=== PATIENT | male | born 1995 | race Two or more races ===

== ENCOUNTER 2023-01-26 04:08 | Inpatient (IN) | payer MEDICAID, OTHER ==
[~2023-01-26] VITALS: Ht 170.2 cm; Wt 90.3 kg
[2023-01-26] MEDS ORDERED: ZOLPIDEM TARTRATE 10 MG TABLET PO PRN (05:15)
[2023-01-26 05:45] LABS: COVID AG,FIA SOURCE NASAL SWAB
[2023-01-26] MEDS: HALOPERIDOL 5 MG TABLET PO PRN (05:45)
[2023-01-26] MEDS: LORazepam 2 MG TABLET PO PRN (05:45)
[2023-01-26 05:46] LABS: BASOPHILS % (AUTO) 0.9 % (0.0-2.0); EOSINOPHILS % (AUTO) 1.2 % (1.0-6.0); HEMATOCRIT 45.2 % (41-53); HEMOGLOBIN 15.1 g/dL (13.5-17.5); LYMPHOCYTES # (AUTO) 2.6 K/uL (1.0-4.8); MEAN CORPUSCULAR HGB CONC 33.4 G/dL (31.0-37.0); MEAN CORPUSCULAR VOLUME 90 fL (80-100); MONOCYTES # (AUTO) 0.7 K/uL (0.1-1.0); MONOCYTES % (AUTO) 7.6 % (2.0-9.0); NEUTROPHILS % (AUTO) 63.3 % (40.0-70.0); PLATELET COUNT (AUTO) 282 K/uL (150-450); RED BLOOD CELL COUNT(AUTO) 5.03 MIL/uL (4.50-5.90); RED CELL DISTRIBUTION WIDTH 13.7 % (11.5-14.5); WHITE BLOOD COUNT (AUTO) 9.5 K/uL (4.5-11.0)
[2023-01-26 05:53] LABS: SARS-COV2 (COVID) ANTIGEN,FIA Negative (Negative)
[2023-01-26 06:04] LABS: ALCOHOL, BLOOD (SERUM) < 3 mg/dL (0-10)
[2023-01-26 06:15] LABS: ANION GAP 14 mmol/L (8-16); CALCIUM, TOTAL 9.6 mg/dL (8.8-10.5); CARBON DIOXIDE 25 mmol/L (22-29); CHLORIDE 102 mmol/L (98-107); CREATININE 1.15 mg/dL (0.60-1.30); GLOMERULAR FILTR. RATE CALC > 60 mL/min (>60); GLUCOSE,RANDOM 115 mg/dL (70-110); POTASSIUM 3.8 mmol/L (3.5-5.1); SODIUM SERUM 140 mmol/L (136-145); UREA NITROGEN, BLOOD 10 mg/dL (7-18)
[2023-01-26 06:21] LABS: ALANINE AMINOTRANSFERASE 44 U/L (12-78); ALBUMIN 4.3 g/dL (3.4-5.0); ALKALINE PHOSPHATASE 101 U/L (46-116); ASPARTATE AMINOTRANSFERASE 46 U/L (15-37); BILIRUBIN,TOTAL 1.4 mg/dL (0.1-1.0); TOTAL PROTEIN, SERUM 7.7 g/dL (6.4-8.2)
[2023-01-26 06:44] LABS: APPEARANCE,URINE CLEAR (CLEAR); BILIRUBIN,URINE NEGATIVE (NEGATIVE); COLOR,URINE YELLOW (YELLOW); GLUCOSE, URINE (UA) NEGATIVE (NEGATIVE); KETONES,URINE TRACE mg/dL (NEGATIVE); LEUKOCYTE ESTERASE ,URINE NEGATIVE (NEGATIVE); NITRATE,URINE NEGATIVE (NEGATIVE); OCCULT BLOOD,URINE NEGATIVE (NEGATIVE); PROTEIN,URINE 30-70 mg/dL (NEGATIVE); SPECIFIC GRAVITIY, URINE 1.029 (1.003-1.030)
[2023-01-26 06:48] LABS: ALCOHOL, URINE DRUG SCREEN NEGATIVE (NEGATIVE); AMPHET/METH SCREEN,URINE NEGATIVE (NEGATIVE); BARBITURATE SCREEN, URINE NEGATIVE (NEGATIVE); BENZODIAZEPINES SCREEN,URINE NEGATIVE (NEGATIVE); CANNABINOID SCREEN,URINE POSITIVE (NEGATIVE); COCAINE SCREEN,URINE NEGATIVE (NEGATIVE); METHADONE SCREEN, URINE NEGATIVE (NEGATIVE); OPIATE SCREEN,URINE NEGATIVE (NEGATIVE); PHENCYCLIDINE SCREEN,URINE NEGATIVE (NEGATIVE)
[2023-01-26] MEDS ORDERED: PERTUSS(ACELL),DIPH,TET VAC/PF 0.5 ML SYRINGE IM. ONE (11:00)
[2023-01-28 00:11] VITALS: BP 145/93; PULSE 88; RESP 19; TEMP 97.4; O2SAT 95
[2023-01-28] MEDS: LORazepam 2 MG TABLET PO PRN (08:32)
[2023-01-28] MEDS: HALOPERIDOL 5 MG TABLET PO PRN (08:32)
[2023-01-28 09:50] VITALS: BP 158/99; PULSE 86; RESP 17; TEMP 97.9; O2SAT 98
[2023-01-28] MEDS ORDERED: MAGNESIUM HYDROXIDE SUSPENSION 30 ML UDCUP PO PRN (15:30)
[2023-01-28] MEDS ORDERED: MAG HYDROX/AL HYDROX/SIMETH ES 30 ML SUSPENSION UDCUP PO PRN (15:30)
[2023-01-28] MEDS ORDERED: IBUPROFEN 400 MG TABLET PO PRN (15:30)
[2023-01-28] MEDS ORDERED: GuaiFENesin/D-METHORPHAN [SUGAR-FREE] 200-20MG/10 ML SYRUP UDCUP PO PRN (15:30)
[2023-01-28] MEDS ORDERED: PETROLATUM,WHITE 28 GM JELLY TP PRN (15:30)
[2023-01-28] MEDS ORDERED: NICOTINE 14 MG/24 HOUR PATCH TD PRN (15:30)
[2023-01-28] MEDS ORDERED: ALBUTEROL SULFATE HFA 90 MCG/PUFF 8 GM INHALER IH PRN (15:30)
[2023-01-28] MEDS ORDERED: DOCUSATE SODIUM 100 MG CAPSULE PO PRN (15:30)
[2023-01-28] MEDS ORDERED: CloNIDine HCL 0.1 MG TABLET PO PRN (15:30)
[2023-01-28] MEDS ORDERED: LOPERAMIDE HCL 2 MG CAPSULE PO PRN (15:30)
[2023-01-28] MEDS ORDERED: ACETAMINOPHEN 325 MG TABLET PO PRN (15:30)
[2023-01-28] MEDS ORDERED: ONDANSETRON HCL 4 MG TABLET PO PRN (15:30)
[2023-01-28] MEDS: RisperiDONE 1 MG TABLET PO SCH (17:05)
[2023-01-28 20:50] VITALS: BP 125/78; PULSE 82; RESP 18; TEMP 97.5; O2SAT 98
[2023-01-29 06:25] LABS: HEMOGLOBIN A1C 5.4 % (3.8-5.6)
[2023-01-29 06:30] LABS: THYROID STIMULATING HORMONE 0.62 uIU/mL (0.36-3.74)
[2023-01-29] MEDS: RisperiDONE 1 MG TABLET PO SCH ×2 (08:42→18:09)
[2023-01-29 09:45] LABS: CHOL/HDL RATIO 4.2 (4.2-7.3)
[2023-01-29 10:55] VITALS: BP 122/71; PULSE 81; RESP 17; TEMP 97.2; O2SAT 97
[2023-01-29 21:05] VITALS: BP 131/74; PULSE 83; RESP 18; TEMP 97.4; O2SAT 97
[2023-01-30 08:05] VITALS: BP 141/87; PULSE 68; RESP 18; TEMP 97.1; O2SAT 100
[2023-01-30] MEDS: RisperiDONE 1 MG TABLET PO SCH ×2 (08:28→16:14)
[2023-01-30] MEDS ORDERED: RISP1TAB98 PO (12:04)
== END 2023-01-30 17:30 | disposition home or self-care (01) | DRG 750 ==
LOC: EMS 04:11 → 3EI 01-27 21:42
PROVIDERS: ADMIT Psychiatry & Neurology Child & Adolescent Psychiatry; ATTEND Psychiatry & Neurology Child & Adolescent Psychiatry
DX: F25.1 Schizoaffective disorder, depressive type (principal); S09.90XA Unspecified injury of head, initial encounter; R45.851 Suicidal ideations; F41.9 Anxiety disorder, unspecified; F32.A Depression, unspecified; E80.6 Other disorders of bilirubin metabolism; Z20.822 Contact with and (suspected) exposure to COVID-19; R03.0 Elevated blood-pressure reading, without diagnosis of hypertension; F12.10 Cannabis abuse, uncomplicated; X58.XXXA Exposure to other specified factors, initial encounter; Z91.148 Patient's other noncompliance with medication regimen for other reason; Y93.89 Activity, other specified; Y92.89 Other specified places as the place of occurrence of the external cause; Y99.8 Other external cause status
CPT/HCPCS: 70450; 70486; 70490; 80053; 80061; 80307; 81003; 83036; 84443; 85025; 90471; 90715; 99285; G0480